=== PATIENT | male | born 1970 | race African-American/Black ===

== ENCOUNTER 2016-04-26 20:37 | Emergency (ER) | payer OTHER ==
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
[2016-04-26 20:50] VITALS: BP 125/71; PULSE 89; TEMP 98; BMI 34.4
[2016-04-26] MEDS ORDERED: KETOROLAC TROMETHAMINE 60 MG/2 ML VIAL IM ONE (20:54)
[2016-04-26] MEDS ORDERED: KETOROLAC TROMETHAMINE 60 MG/2 ML VIAL ONE (20:55)
== END 2016-04-26 21:49 | disposition home or self-care (01) ==
LOC: FER 20:37
PROC: 3E0233Z Introduction of Anti-inflammatory into Muscle, Percutaneous Approach (ICD-10-PCS; principal; 2016-04-26)
PROC: 2W3CX1Z Immobilization of Right Lower Arm using Splint (ICD-10-PCS; 2016-04-26)
DX: S86.811A Strain of other muscle(s) and tendon(s) at lower leg level, right leg, initial encounter (principal); Y04.2XXA Assault by strike against or bumped into by another person, initial encounter; Y93.89 Activity, other specified; Y92.049 Unspecified place in boarding-house as the place of occurrence of the external cause; Y99.0 Civilian activity done for income or pay
CPT/HCPCS: 73560-TC-RT; 99282-25

== ENCOUNTER 2016-05-05 09:47 | Day surgery (SDC) | payer OTHER ==
[2016-05-03 13:41] VITALS: BMI 35.2
[2016-05-05] MEDS ORDERED: MIDAZOLAM HCL 2 MG/2 ML SINGLE DOSE VIAL ONE (12:40)
[2016-05-05] MEDS ORDERED: ROPIVACAINE HCL 0.5% 30ML VIAL ONE (12:40)
[2016-05-05] MEDS ORDERED: DEXAMETHASONE SOD PHOSPHATE/PF 10 MG/ML SDV ONE (12:41)
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
[2016-05-05] MEDS ORDERED: BUPIVACAINE HCL/EPINEPHRINE/PF 30 ML VIAL IJ ONE (13:21)
[2016-05-05] MEDS ORDERED: VANCOMYCIN 1,000 MG VIAL (RESTRICTED TO ID ONLY) ONE (13:21)
[2016-05-05] MEDS ORDERED: PROPOFOL 20 ML ONE (13:33)
[2016-05-05] MEDS ORDERED: SUCCINYLCHOLINE CHLORIDE 200 MG/10 ML VIAL ONE (13:34)
[2016-05-05] MEDS ORDERED: ceFAZolin SODIUM 1 GM VIAL ONE (13:38)
--- NOTE | 2016-05-05 15:08 | OP ---
Operative Note - Note: Operative Date: 05/05/16 Pre-Operative Diagnosis: Right patella tendon tear Operation: Right patella tendon repair Post-Operative Diagnosis: Same as Pre-op Surgeon: Ced Neely Anesthesia: General Operative Report Dictated: Yes
--- NOTE | 2016-05-05 15:09 | DS ---
Physical Examination Vital Signs: Vital Signs Temperature 98.6 F 05/05/16 10:24 Pulse Rate 95 H 05/05/16 10:24 Respiratory Rate 18 05/05/16 10:24 Blood Pressure 141/82 05/05/16 10:24 O2 Sat by Pulse Oximetry (%) 99 05/05/16 10:24 Discharge Summary Reason For Visit: RIGHT KNEE PATELLA TENDON TEAR Condition: Good - Instructions Diet, Activity, Other Instructions: Stay in knee immobilizer/brace at all times NO motion allowedl Do not put weight on your leg Keep the leg elevated when at rest Call the office for an appointment to see me in 10-14 days. Disposition: HOME - Home Medications Comprehensive Discharge Medication List: Ambulatory Orders Ibuprofen [Advil -] 400 mg PO BID PRN 05/05/16
[2016-05-05] MEDS ORDERED: ONDANSETRON 4 MG/2 ML VIAL IVPUSH PRN (15:33)
[2016-05-05] MEDS ORDERED: PROMETHAZINE HCL 25 MG/1 ML VIAL IVPUSH PRN (15:33)
[2016-05-05] MEDS ORDERED: LACTATED RINGERS SOLUTION 1,000 ML IV SCH (15:45)
[2016-05-05] MEDS ORDERED: ONDANSETRON 4 MG/2 ML VIAL ONE (16:15)
--- NOTE | 2016-05-05 17:59 | SURG ---
Surgery Boiler Plant Worker Note Boiler Plant Worker: Grace Mitchell PA-C Date of Service: 05/05/16 Diagnosis: Right patella tendon tear Procedure: Right patella tendon repair I was present for the entirety of the operative procedure. For further detail, please refer to operative report. Visit type - Case Type Case Type: Scheduled Admission - Emergency Emergency Visit: No - New patient This patient is new to me today: Yes Date on this admission: 05/05/16 - Critical Care Critical Care patient: No
[2016-05-05] MEDS ORDERED: oxyCODONE HCL 5 MG TABLET ONE (18:47)
[2016-05-05] MEDS ORDERED: oxyCODONE HCL 5 MG TABLET PO PRN (18:52)
[2016-05-05 19:54] VITALS: BP 116/76; PULSE 77; TEMP 98
== END 2016-05-05 19:40 | disposition home or self-care (01) ==
LOC: FASU 09:47
PROVIDERS: ATTEND Orthopaedic Surgery
PROC: 0LQQ0ZZ Repair Right Knee Tendon, Open Approach (ICD-10-PCS; principal; 2016-05-05 13:52)
DX: M66.861 Spontaneous rupture of other tendons, right lower leg (principal)
CPT/HCPCS: 94760